=== PATIENT | male | born 1945 | race Caucasian/White ===

== ENCOUNTER 2018-01-25 11:06 | Emergency (ER) | payer MEDICARE, BC ==
[~2018-01-25] VITALS: Ht 172.7 cm; Wt 77.1 kg
[~2018-01-25 11:06] MED LIST: ASPI81CH; Carvedilol12.5 MG; LOSA50; LOVA40; METF500
[2018-01-25] MEDS ORDERED: Ventolin/Prove6.7 GM (11:16)
[2018-01-25] MEDS ORDERED: HYDHOMSY (11:16)
[2018-01-25] MEDS ORDERED: CEFD300 PO (11:16)
[2018-01-25] MEDS ORDERED: Flonase 0.05% N16 GM (11:16)
[2018-01-25 12:18] LABS: Influenza A Negative (NEGATIVE); Influenza B Negative (NEGATIVE)
[2018-01-25] MEDS ORDERED: SINUS 12 HOUR120 MG PO (12:30)
== END 2018-01-25 12:35 | disposition home or self-care (01) ==
LOC: ER 11:06
PROVIDERS: Physician Assistant
DX: R05 Cough (principal); R09.81 Nasal congestion; E78.00 Pure hypercholesterolemia, unspecified; I10 Essential (primary) hypertension; Z88.0 Allergy status to penicillin; Z79.899 Other long term (current) drug therapy; Z79.84 Long term (current) use of oral hypoglycemic drugs; Z79.82 Long term (current) use of aspirin; Z87.891 Personal history of nicotine dependence
CPT/HCPCS: 71046; 87804; 99283-25

== ENCOUNTER 2020-07-11 09:39 | Day surgery (SDC) | payer MEDICARE, BC ==
[~2020-07-11] VITALS: Ht 182.9 cm; Wt 78.7 kg
[~2020-07-11 09:39] MED LIST changes: -ASPI81CH; +Aspirin EC81 MG PO; +CEFD300 PO; -Carvedilol12.5 MG; +Carvedilol12.5 MG PO; +Flonase 0.05% N16 GM; +HYDHOMSY; -LOSA50; +LOSA50 PO; -LOVA40; +LOVA40 PO; -METF500; +METF500 PO; +SINUS 12 HOUR120 MG PO; +Ventolin/Prove6.7 GM
== END 2020-07-11 12:04 | disposition home or self-care (01) ==
LOC: ORSCSDS 09:39
PROVIDERS: Surgery
PROC: 0DBN8ZX Excision of Sigmoid Colon, Via Natural or Artificial Opening Endoscopic, Diagnostic (ICD-10-PCS; principal; 2020-07-11 11:00)
PROC: 0DBM8ZX Excision of Descending Colon, Via Natural or Artificial Opening Endoscopic, Diagnostic (ICD-10-PCS; principal; 2020-07-11 11:00)
DX: Z12.11 Encounter for screening for malignant neoplasm of colon (principal); Z86.010 Personal history of colon polyps; Z80.0 Family history of malignant neoplasm of digestive organs; D12.4 Benign neoplasm of descending colon; D12.5 Benign neoplasm of sigmoid colon; K57.30 Diverticulosis of large intestine without perforation or abscess without bleeding; I10 Essential (primary) hypertension; E78.5 Hyperlipidemia, unspecified; E11.9 Type 2 diabetes mellitus without complications; Z87.891 Personal history of nicotine dependence; Z79.84 Long term (current) use of oral hypoglycemic drugs; Z79.899 Other long term (current) drug therapy
CPT/HCPCS: 82947; 88305; J2704; J7120